=== PATIENT | male | born 1970 | race Hispanic/Latino ===

== ENCOUNTER 2022-10-26 15:02 | Day surgery (SDC) | payer BC ==
[~2022-10-26] VITALS: Ht 180.3 cm; Wt 91.0 kg
[2022-10-26] VITALS (9 sets, daily range): BP systolic 124–147; BP diastolic 74–91; PULSE 58–69; RESP 15–18
[2022-10-26 15:32] LABS: BASOPHILS # (AUTO) 0.08 K/uL (0.00-0.20); BASOPHILS % (AUTO) 1.2 % (0.0-5.0); EOSINOPHILS # (AUTO) 0.09 K/uL (0.00-0.70); EOSINOPHILS % (AUTO) 1.3 % (0.0-8.0); HEMATOCRIT 52.6 % (42-54); IMMATURE GRANULOCYTE ABSOLUTE 0.03 K/uL (0-1); LYMPHOCYTES # (AUTO) 2.2 K/uL (1.0-4.8); LYMPHOCYTES % (AUTO) 32.1 % (21.0-51.0); MEAN CORPUSCULAR HEMOGLOBIN 29.6 pg (27.0-33.0); MEAN CORPUSCULAR HGB CONC 32.7 g/dL (32.0-36.0); MEAN CORPUSCULAR VOLUME 90.5 fL (79-99); MONOCYTES # (AUTO) 0.6 K/uL (0.1-1.0); MONOCYTES % (AUTO) 8.6 % (3.0-13.0); NEUTROPHILS # (AUTO) 3.8 K/uL (1.8-7.7); NEUTROPHILS % (AUTO) 56.4 % (40.0-77.0); PLATELET COUNT (AUTO) 317 K/uL (130-400); RED BLOOD CELL COUNT(AUTO) 5.81 MIL/uL (4.50-6.20); RED CELL DISTRIBUTION WIDTH 12.4 % (11.0-15.5); WHITE BLOOD COUNT (AUTO) 6.8 K/uL (4.8-10.8)
[2022-10-26] MEDS ORDERED: LACTATED RINGERS 1000ML 1,000 ML IV ONE (15:33)
[2022-10-26] MEDS ORDERED: CEFTRIAXONE 1G VIAL ONE (15:33)
[2022-10-26 15:45] LABS: CREATININE 1.2 mg/dL (0.5-1.5); POTASSIUM 4.8 mmol/L (3.5-5.1)
[2022-10-26] MEDS ORDERED: PROPOFOL 10 MG/ML 20ML VIAL IV ONE (16:24)
[2022-10-26] MEDS ORDERED: FENTANYL CITRATE PF 50 MCG/1 ML 2ML VIAL ONE ×2 (16:24→16:57)
[2022-10-26] MEDS ORDERED: ACET-2079 PO (16:46)
[2022-10-26] MEDS ORDERED: ONDANSETRON 4MG INJ ONE (16:58)
[2022-10-26] MEDS ORDERED: MIDAZOLAM HCL 1 MG/ML 2ML VIAL ONE (16:58)
[2022-10-26] MEDS ORDERED: CEFTRIAXONE 1G VIAL IVPB ONE (17:00)
[2022-10-26] MEDS ORDERED: ROCURONIUM 10MG/1ML SYR 10 MG/ML ML ONE (17:03)
[2022-10-26] MEDS ORDERED: GLYCOPYRROLATE 1 MG/5 ML SYRINGE ONE (17:39)
[2022-10-26] MEDS ORDERED: PHENYLEPHRINE HCL 10 MG/ML 1ML VIAL IV ONE (17:43)
[2022-10-26] MEDS ORDERED: NEOSTIGMINE 5MG/5ML SYR IV ONE (17:53)
== END 2022-10-26 19:17 | disposition home or self-care (01) ==
LOC: SUH 15:02 → DAH 15:02 → SUH 19:17
PROVIDERS: ATTEND Urology
DX: N13.2 Hydronephrosis with renal and ureteral calculous obstruction (principal); Z20.822 Contact with and (suspected) exposure to COVID-19; R10.9 Unspecified abdominal pain; Z98.890 Other specified postprocedural states
CPT/HCPCS: 50590; 80048; 85025; 87426; 36415; A4663; J7120; J3010 ×2; J3490; J2710; J0696 ×2; J2250; J2704; J2405; J2371; A4215; A4223; A4222; A4221; A4600; A4510